=== PATIENT | female | born 2000 | race Caucasian/White ===

== ENCOUNTER 2021-03-03 15:57 | Emergency (ER) | payer BC, SELFPAY ==
--- NOTE | ~2021-03-03 | XR_ITS ---
EXAMINATION: XR ANKLE, LEFT CLINICAL INFORMATION: Left ankle injury COMPARISON: None TECHNIQUE: AP, lateral, and mortise views of the left ankle. FINDINGS: Diffuse soft tissue swelling is seen more so along the lateral malleolus. There are tiny ossification seen along the inferior aspect of the lateral malleolus likely representing a subtle avulsion fracture. Mortise itself appears to be intact with no abnormal widening or irregularity. No other acute bony abnormality seen. XR/XR ankle LT min 3V IMPRESSION: Soft tissue swelling laterally. Tiny ossification inferior to lateral malleolus suggesting a subtle avulsion injury.
[2021-03-03 16:34] VITALS: BP 141/54; PULSE 85; RESP 17; TEMP 36.8; O2SAT 100; BMI 20.7
--- NOTE | 2021-03-03 18:17 | ED.LOWEXIN ---
HPI - Extremity Injury (Lower) General Chief Complaint: Extremity Injury, Lower Stated Complaint: Fall/Ankle injury Time Seen by Provider: 03/03/21 18:17 Source: patient Mode of arrival: ambulatory Limitations: no limitations History of Present Illness HPI Narrative: Patient was playing soccer and rolled her left ankle complaining of pain on the lateral aspect of the ankle with swelling no other injuries Related Data Previous Rx's Medication Instructions Recorded ibuprofen 600 mg tablet 600 mg PO Q6H PRN #20 tab 03/03/21 Allergies Allergy/AdvReac Type Severity Reaction Status Date / Time Penicillins [PENICILLINS] Allergy Unknown hives Verified 03/03/21 16:33 Review of Systems Review of Systems: Yes all other systems are reviewed and are negative PMFSH Past Medical History Medical History Ankylosing spondylitis Surgical History H/O hand surgery Social History Social History Advance Directives: No Advance Directives Information Provided: No Patient : No Physical Exam Vital Signs: Vital Signs: Last Vital Signs Temp 98.3 F 03/03/21 16:34 Pulse 85 03/03/21 16:34 Resp 17 03/03/21 16:34 BP 141/54 H 03/03/21 16:34 Pulse Ox 100 03/03/21 16:34 Body Mass Index 20.7 Const: General: comfortable, no acute distress and well developed Extrem: Ankle/foot/toe images: 1. Swelling of the lateral malleolus left ankle neurovascular intact no deformity MDM - Extremity Injury (Lower) MDM Narrative Medical decision making narrative: Patient x-ray negative for fracture discharge patient home applied tear cast and crutches were given Discharge Plan Discharge Clinical Impression: Ankle sprain and strain Patient Disposition: Home, Self-Care Instructions: Ankle Sprain (ED) Additional Instructions: Use the Aircast for support ankle Use crutches to ambulate Ibuprofen for pain Prescriptions: New ibuprofen 600 mg tablet 600 mg PO Q6H PRN (Reason: pain) Qty: 20 RF: 0 Interventions: ED Discharge Assessment Last Done: 03/03/21 18:53 Discharge Date/Time: 03/03/21 18:55
[2021-03-03] MEDS: Ibuprofen 600 MG TABLET PO (18:51)
== END 2021-03-03 18:55 | disposition home or self-care (01) ==
PROVIDERS: Emergency Provider Internal Medicine
DX: S93.402A Sprain of unspecified ligament of left ankle, initial encounter (principal); M25.572 Pain in left ankle and joints of left foot; X50.1XXA Overexertion from prolonged static or awkward postures, initial encounter; Y93.9 Activity, unspecified; Y92.9 Unspecified place or not applicable; Y99.9 Unspecified external cause status
CPT/HCPCS: 73610; 99283; 99284